=== PATIENT | female | born 1980 | race Caucasian/White ===

== ENCOUNTER 2020-05-09 11:37 | Emergency (ER) | payer MEDICAID ==
[~2020-05-09] VITALS: Ht 152.4 cm; Wt 63.5 kg
[2020-05-09 11:44] VITALS: Ht 152.4 cm; Wt 63.5 kg
[2020-05-09 13:01] VITALS: BP 116/47
== END 2020-05-09 13:01 | disposition home or self-care (01) ==
LOC: ED 11:37
DX: L60.0 Ingrowing nail (principal)
CPT/HCPCS: J2001

== ENCOUNTER 2020-05-11 11:32 | Emergency (ER) | payer MEDICAID ==
[~2020-05-11] VITALS: Ht 152.4 cm; Wt 66.7 kg
[2020-05-11 11:41] VITALS: BP 128/78
== END 2020-05-11 12:04 | disposition home or self-care (01) ==
LOC: ED 11:32
DX: L60.0 Ingrowing nail (principal); Z98.890 Other specified postprocedural states